=== PATIENT | female | born 1955 | race Caucasian/White ===

== ENCOUNTER 2021-10-24 06:41 | Day surgery (SDC) | payer MEDICARE, OTHER ==
[2021-10-24] MEDS ORDERED: Dextrose 50% Abboject 50 ML SYRINGE ONE (08:00)
[2021-10-24] MEDS ORDERED: Ketorolac Tromethamine 30 MG/ML VIAL ONE (08:19)
[2021-10-24] MEDS ORDERED: Acetaminophen 325 MG TAB ONE (08:19)
[2021-10-24] MEDS ORDERED: Gabapentin 300 MG CAP ONE (08:21)
[2021-10-24] MEDS ORDERED: Lidocaine 1% MPF 2 ML VIAL ONE (08:21)
[2021-10-24] MEDS ORDERED: Bupivacaine PF 0.5% 30 ML VIAL ONE (09:25)
[2021-10-24] MEDS ORDERED: EPINEPHrine 1 MG/ML AMP ONE (09:25)
[2021-10-24] MEDS ORDERED: Dexamethasone 20 MG/5 ML VIAL ONE (09:28)
[2021-10-24] MEDS ORDERED: Fentanyl 100 MCG/2 ML VIAL ONE ×2 (09:28→14:31)
[2021-10-24] MEDS ORDERED: Lidocaine 1% PF 5 ML VIAL ONE ×2 (09:28→14:31)
[2021-10-24] MEDS ORDERED: Ondansetron PF 4 MG/2 ML Vial ONE ×2 (09:28→14:32)
[2021-10-24] MEDS ORDERED: ceFAZolin 2 GM/Dextrose 50 ML IVPB ONE ×2 (09:33→14:47)
[2021-10-24] MEDS ORDERED: PROPOFOL 20 ML ONE (14:31)
[2021-10-24] MEDS ORDERED: Rocuronium Bromide 10 MG/ML (10ML VIAL) ONE (14:32)
[2021-10-24] MEDS ORDERED: Succinylcholine 200 MG/10 ml SYRINGE FS ONE (14:32)
[2021-10-24] MEDS ORDERED: PHENYLEPHRINE-NS 100 MCG/ML 10 ML SYRINGE ONE (15:20)
[2021-10-24] MEDS ORDERED: ePHEDrine Sulfate 50 MG/10 ML VIAL ONE (15:34)
== END 2021-10-24 17:50 | disposition home or self-care (01) ==
LOC: CSHSDC 06:41
PROVIDERS: ATTEND Orthopaedic Surgery
PROC: 0QS604Z Reposition Right Upper Femur with Internal Fixation Device, Open Approach (ICD-10-PCS; principal; 2021-10-24)
DX: T84.84XA Pain due to internal orthopedic prosthetic devices, implants and grafts, initial encounter (principal); S72.041 Displaced fracture of base of neck of right femur; I10 Essential (primary) hypertension; E11.9 Type 2 diabetes mellitus without complications; Z79.899 Other long term (current) drug therapy; F17.210 Nicotine dependence, cigarettes, uncomplicated
CPT/HCPCS: 20680; 27236; 73503; 82962; 93005; C1713 ×2; C1769; 36416; 93010; J0171; J0690; J1100; J1885; J2405; J2704; J3010; J7999; S0020

== ENCOUNTER 2022-03-27 11:16 | Outpatient (CLI) | payer MEDICARE, OTHER ==
[2022-03-27] MEDS ORDERED: Iopamidol 300 61% 100 ML VIAL FS ONE (14:46)
== END 2022-03-27 11:17 | disposition home or self-care (01) ==
LOC: CSHCT 11:16
PROVIDERS: ATTEND Internal Medicine Hematology & Oncology
DX: C34.90 Malignant neoplasm of unspecified part of unspecified bronchus or lung (principal); C79.31 Secondary malignant neoplasm of brain; E22.2 Syndrome of inappropriate secretion of antidiuretic hormone; J32.9 Chronic sinusitis, unspecified
CPT/HCPCS: 70470; Q9967